=== PATIENT | female | born 1980 | race Caucasian/White ===

== ENCOUNTER 2019-07-03 10:39 | Inpatient (IN) | payer OTHER ==
[2019-07-02 11:32] LABS: MICROSCOPIC AUTO
[~2019-07-03] VITALS: Ht 175.3 cm; Wt 93.5 kg
[~2019-07-03 10:39] MED LIST: CEPH-376 PO; SUMA4CAR IM; TAMS-11 PO; ZOLM2.5S NAS
[2019-07-03] MEDS ORDERED: LACTATED RINGERS 1,000 ML IV SCH (11:02)
[2019-07-03 11:06] VITALS: BP 122/77
[2019-07-03 11:24] LABS: HCG UR SG 1.011 (1.003-1.030)
[2019-07-03] MEDS ORDERED: CHLORHEXIDINE 15 ML UDC MM ONE (11:30)
[2019-07-03] MEDS ORDERED: MIDAZOLAM 1 MG/ML, 2ML ONE (11:45)
[2019-07-03] MEDS ORDERED: FENTANYL PF 250 MCG/5ML ONE (11:45)
[2019-07-03] MEDS ORDERED: DEXAMETHASONE 4 MG/ML, 1ML ONE ×2 (11:48→11:54)
[2019-07-03] MEDS ORDERED: PROPOFOL 10 MG/ML, 20ML ONE (11:48)
[2019-07-03] MEDS ORDERED: CEFAZOLIN 1,000 MG ONE ×3 (11:48→11:54)
[2019-07-03] MEDS ORDERED: SUCCINYLCHOLINE 20 MG/ML, 10ML ONE (11:54)
[2019-07-03] MEDS ORDERED: FENTANYL PF 100 MCG/2ML ONE ×4 (12:55→16:11)
[2019-07-03] MEDS ORDERED: OMNIPAQUE 350 MG/ML, 50 ML BOTTLE ONE (13:01)
[2019-07-03] MEDS ORDERED: ONDANSETRON 2MG/ML, 2ML ONE (13:27)
[2019-07-03] MEDS ORDERED: EPHEDRINE 50 MG/ML, 1ML IVPush PRN (13:30)
[2019-07-03] MEDS ORDERED: PROMETHAZINE 25 MG/ML, 1ML IVPush PRN (13:30)
[2019-07-03] MEDS ORDERED: PROMETHAZINE 12.5 MG SUPP PR PRN (13:30)
[2019-07-03] MEDS ORDERED: LABETALOL 5MG/ML, 20ML IV PRN (13:30)
[2019-07-03] MEDS ORDERED: HYDROmorphone 1 MG/ML, 1ML INJ IVPush PRN (13:30)
[2019-07-03] MEDS ORDERED: ALBUTEROL SULFATE 2.5 MG/3 ML NPPB PRN (13:30)
[2019-07-03] MEDS ORDERED: ACETAMINOPHEN 325 MG TABLET PO PRN (13:30)
[2019-07-03] MEDS ORDERED: MIDAZOLAM 1 MG/ML, 2ML IV PRN (13:30)
[2019-07-03] MEDS ORDERED: ONDANSETRON 2MG/ML, 2ML IVPush PRN (13:30)
[2019-07-03] MEDS ORDERED: LORazepam 2 MG/ML, 1ML IVPush PRN (13:30)
[2019-07-03] MEDS ORDERED: hydrALAzine 20 MG/ML, 1ML IV PRN (13:30)
[2019-07-03] MEDS ORDERED: DIPHENHYDRAMINE 50 MG/ML, 1ML IVPush PRN (13:30)
[2019-07-03] MEDS ORDERED: MEPERIDINE/PF 25MG/0.5ML IVPush PRN (13:30)
[2019-07-03] MEDS ORDERED: MEPERIDINE/PF 50 MG/ML ONE (13:33)
[2019-07-03] MEDS: FENTANYL PF 100 MCG/2ML IV PRN ×2 (13:45→13:51)
[2019-07-03] MEDS ORDERED: DIPHENHYDRAMINE 50 MG/ML, 1ML ONE (14:02)
[2019-07-03] MEDS ORDERED: SUMATRIPTAN 6MG/0.5ML SQ PRN (16:00)
[2019-07-03] MEDS: HYDROmorphone 1 MG/ML, 1ML INJ IV PRN ×5 (16:03→22:11)
[2019-07-03] MEDS ORDERED: FLUMAZENIL 0.1 MG/1 ML, 5ML ONE (16:11)
[2019-07-03] MEDS ORDERED: NALOXONE 1 MG/ML, 2ML ONE (16:11)
[2019-07-03] MEDS ORDERED: MIDAZOLAM 1 MG/ML, 5ML ONE (16:11)
[2019-07-03] MEDS ORDERED: LIDOCAINE 1%, 20ML ONE ×2 (16:13→16:48)
[2019-07-03] MEDS ORDERED: VISIPAQUE 270 MG/ML, 50ML BOTTLE ONE (17:10)
[2019-07-03 17:40] VITALS: BP 113/67
[2019-07-03 19:41] VITALS: BP 124/81
[2019-07-03] MEDS: LACTATED RINGERS 1,000 ML IV SCH (20:20)
[2019-07-03] MEDS: ONDANSETRON 2MG/ML, 2ML IV PRN (22:06)
[2019-07-03 23:51] VITALS: BP 117/76
[2019-07-04] MEDS: HYDROmorphone 1 MG/ML, 1ML INJ IV PRN ×4 (01:43→12:02)
[2019-07-04 03:24] VITALS: BP 99/56
[2019-07-04] MEDS: LACTATED RINGERS 1,000 ML IV SCH ×2 (05:59→08:22)
[2019-07-04 10:21] VITALS: BP 105/62
[2019-07-04] MEDS ORDERED: DOCU-131 PO (10:47)
[2019-07-04] MEDS: ONDANSETRON 2MG/ML, 2ML IV PRN (13:09)
[2019-07-04 15:30] VITALS: BP 109/76
== END 2019-07-04 16:00 | disposition home or self-care (01) | DRG 690 ==
LOC: OUT 10:39 → EDSTATUS 13:00 → 4NE 14:58 → OUT 15:06 → 4NE 15:06
PROVIDERS: ADMIT Urology; ATTEND Urology
PROC: 0T9330Z Drainage of Right Kidney Pelvis with Drainage Device, Percutaneous Approach (ICD-10-PCS; 2019-07-03)
PROC: BT141ZZ Fluoroscopy of Kidneys, Ureters and Bladder using Low Osmolar Contrast (ICD-10-PCS; principal; 2019-07-03 13:00)
DX: N13.5 Crossing vessel and stricture of ureter without hydronephrosis (principal); N30.20 Other chronic cystitis without hematuria; Z87.442 Personal history of urinary calculi
CPT/HCPCS: 50432; 74420; J3490; 76770; 81001; 81025; 87086; 99156; 99157; C1894; G0378; J0690; J1100; J1170; J2175; J2250; J2405; J2704; J3010; Q9966; Q9967; C1729; C1769; J0330; J1200; J2310; J7120; U0001

== ENCOUNTER 2019-09-11 09:59 | Day surgery (SDC) | payer OTHER ==
[~2019-09-11] VITALS: Ht 175.3 cm; Wt 89.7 kg
[~2019-09-11 09:59] MED LIST changes: +DOCU-131 PO
[2019-09-11 10:36] VITALS: BP 105/73
[2019-09-11] MEDS ORDERED: SODIUM CHLORIDE 0.9% 1,000 ML IV ONE (10:42)
[2019-09-11 10:59] LABS: HCG UR SG 1.022 (1.003-1.030)
[2019-09-11] MEDS ORDERED: LIDOCAINE 1%, 10ML ONE (11:21)
[2019-09-11] MEDS ORDERED: MIDAZOLAM 1 MG/ML, 5ML ONE (12:11)
[2019-09-11] MEDS ORDERED: FLUMAZENIL 0.1 MG/1 ML, 5ML ONE (12:11)
[2019-09-11] MEDS ORDERED: FENTANYL PF 100 MCG/2ML ONE (12:11)
[2019-09-11] MEDS ORDERED: NALOXONE 1 MG/ML, 2ML ONE (12:11)
[2019-09-11] MEDS ORDERED: VISIPAQUE 270 MG/ML, 50ML BOTTLE ONE (13:06)
== END 2019-09-11 14:10 | disposition home or self-care (01) ==
LOC: OUT 09:59
PROVIDERS: ATTEND Student in an Organized Health Care Education/Training Program
DX: N20.0 Calculus of kidney (principal); Z88.1 Allergy status to other antibiotic agents; Z88.0 Allergy status to penicillin; Z88.8 Allergy status to other drugs, medicaments and biological substances; Z91.048 Other nonmedicinal substance allergy status; Z91.040 Latex allergy status; Z79.899 Other long term (current) drug therapy; Z72.89 Other problems related to lifestyle; Z85.828 Personal history of other malignant neoplasm of skin
CPT/HCPCS: 50435; 81025; 99156; C1729; C1769; J2250; J3010; J7030; Q9966; J2310

== ENCOUNTER → 2019-10-26 | Outpatient (CLI) | payer OTHER | END | disposition home or self-care (01) | LOC: STAR 14:20 | PROVIDERS: ATTEND Anesthesiology | DX: Z01.812 Encounter for preprocedural laboratory examination (principal); Z20.828 Contact with and (suspected) exposure to other viral communicable diseases | CPT/HCPCS: 36415; 87635 ==

== ENCOUNTER 2019-11-01 06:58 | Day surgery (SDC) | payer OTHER ==
[~2019-11-01] VITALS: Ht 175.3 cm; Wt 89.1 kg
[2019-11-01] MEDS ORDERED: SODIUM CHLORIDE 0.9% 1,000 ML IV SCH (07:39)
[2019-11-01 07:42] VITALS: BP 122/82
[2019-11-01] MEDS ORDERED: FENTANYL PF 100 MCG/2ML ONE (09:29)
[2019-11-01] MEDS ORDERED: NALOXONE 1 MG/ML, 2ML ONE (09:29)
[2019-11-01] MEDS ORDERED: FLUMAZENIL 0.1 MG/1 ML, 5ML ONE (09:29)
[2019-11-01] MEDS ORDERED: MIDAZOLAM 1 MG/ML, 5ML ONE (09:29)
[2019-11-01] MEDS ORDERED: VISIPAQUE 270 MG/ML, 50ML BOTTLE ONE (09:50)
[2019-11-01] MEDS ORDERED: PHENAZOPYRIDINE 200 MG TABLET PO STA (11:14)
[2019-11-01] MEDS ORDERED: HYDROcodone/APAP 10/325 MG TABLET PO ONE (12:30)
[2019-11-01] MEDS ORDERED: HYDROcodone/APAP 5/325 TABLET PO ONE (14:00)
== END 2019-11-01 16:05 | disposition home or self-care (01) ==
LOC: OUT 06:58
PROVIDERS: ATTEND Student in an Organized Health Care Education/Training Program
DX: Z46.6 Encounter for fitting and adjustment of urinary device (principal); N20.2 Calculus of kidney with calculus of ureter; Z88.0 Allergy status to penicillin; Z88.5 Allergy status to narcotic agent; Z88.8 Allergy status to other drugs, medicaments and biological substances; Z91.040 Latex allergy status
CPT/HCPCS: 50434; 99156; 99157; C1751; C1769; C2625; J2250; J3010; Q9966; 50433; 50435; J2310

== ENCOUNTER 2019-11-02 09:39 | Observation (INO) | payer OTHER ==
[~2019-11-02] VITALS: Ht 175.3 cm; Wt 96.0 kg
[2019-11-02] MEDS ORDERED: LACTATED RINGERS 1,000 ML IV SCH (10:04)
[2019-11-02] MEDS ORDERED: CHLORHEXIDINE 15 ML UDC MM STA (10:05)
[2019-11-02 10:06] VITALS: BP 133/75
[2019-11-02] MEDS ORDERED: PLEASE ENTER HEIGHT AND WEIGHT MC SCH (10:30)
[2019-11-02 10:48] LABS: HCG UR SG 1.023 (1.003-1.030)
[2019-11-02 10:49] LABS: MICROSCOPIC INDICATED
[2019-11-02 11:02] LABS: INTERNATIONAL NORMALIZED RATIO 1.04 (0.93-1.1); PROTHROMBIN TIME 10.7 Seconds (9.6-11.5)
[2019-11-02 11:07] LABS: ANION GAP 8 mmol/L (5-15); CALCIUM 9.2 mg/dL (8.5-10.1); CHLORIDE 112 mmol/L (98-107)
[2019-11-02] MEDS ORDERED: PROPOFOL 50 ML ONE (11:25)
[2019-11-02] MEDS ORDERED: FENTANYL PF 250 MCG/5ML ONE (11:26)
[2019-11-02] MEDS ORDERED: MIDAZOLAM 1 MG/ML, 2ML ONE (11:26)
[2019-11-02] MEDS ORDERED: ONDANSETRON 2MG/ML, 2ML ONE (11:38)
[2019-11-02] MEDS ORDERED: ROCURONIUM 10MG/ML,5ML ONE (11:38)
[2019-11-02] MEDS ORDERED: SUCCINYLCHOLINE 20 MG/ML, 10ML ONE (11:38)
[2019-11-02] MEDS ORDERED: DEXAMETHASONE 4 MG/ML, 1ML ONE (11:38)
[2019-11-02] MEDS ORDERED: PROPOFOL 10 MG/ML, 20ML ONE (11:38)
[2019-11-02] MEDS ORDERED: GENTAMICIN 80 MG/2 ML ONE (11:51)
[2019-11-02] MEDS ORDERED: CLINDAMYCIN 150 MG/ML, 6ML ONE (11:52)
[2019-11-02] MEDS ORDERED: DIAZEPAM 5 MG/ML, 2ML IVPush PRN (12:30)
[2019-11-02] MEDS ORDERED: HYDROmorphone 1 MG/ML, 1ML INJ IVPush PRN (12:30)
[2019-11-02] MEDS ORDERED: MEPERIDINE/PF 25MG/0.5ML IVPush PRN (12:30)
[2019-11-02] MEDS ORDERED: EPHEDRINE 50 MG/ML, 1ML IVPush PRN (12:30)
[2019-11-02] MEDS ORDERED: PROMETHAZINE 25 MG/ML, 1ML IVPush PRN (12:30)
[2019-11-02] MEDS ORDERED: DIPHENHYDRAMINE 50 MG/ML, 1ML IVPush PRN (12:30)
[2019-11-02] MEDS ORDERED: FENTANYL PF 100 MCG/2ML IV PRN (12:30)
[2019-11-02] MEDS ORDERED: LABETALOL 5MG/ML, 20ML IV PRN (12:30)
[2019-11-02] MEDS ORDERED: EPHEDRINE 50 MG/ML, 1ML IM PRN (12:30)
[2019-11-02] MEDS ORDERED: ACETAMINOPHEN 325 MG TABLET PO PRN (12:30)
[2019-11-02] MEDS ORDERED: ONDANSETRON 2MG/ML, 2ML IVPush PRN (12:30)
[2019-11-02] MEDS ORDERED: ONDANSETRON 2MG/ML, 2ML IV PRN (13:30)
[2019-11-02] MEDS ORDERED: HEPARIN 5,000 UNITS/ML, 1ML SQ SCH (13:30)
[2019-11-02] MEDS ORDERED: HYDROmorphone 1 MG/ML, 1ML INJ IV PRN (13:30)
[2019-11-02] MEDS ORDERED: ACETAMINOPHEN 325 MG TABLET PO SCH (13:30)
[2019-11-02] MEDS ORDERED: OXYcodone 5 MG/5 ML ORAL.SOL UDC PO PRN (13:30)
[2019-11-02] MEDS ORDERED: MEPERIDINE/PF 25MG/ML,1ML ONE (13:43)
[2019-11-02 14:09] LABS: ALBUMIN 3.2 g/dL (3.4-5.0); ANION GAP 6 mmol/L (5-15); CALCIUM 8.4 mg/dL (8.5-10.1); CHLORIDE 109 mmol/L (98-107); CREATININE 0.75 mg/dL (0.55-1.02)
[2019-11-02] MEDS ORDERED: SUMATRIPTAN 6MG/0.5ML SQ PRN (17:00)
[2019-11-02] MEDS ORDERED: OXYcodone 5 MG/5 ML ORAL.SOL UDC ONE (17:12)
[2019-11-02] MEDS: HYDROcodone/APAP 10/325 MG TABLET PO PRN (17:52)
[2019-11-02] MEDS: SODIUM CHLORIDE 0.9% 1,000 ML IV SCH (17:52)
[2019-11-02] MEDS ORDERED: IBUPROFEN 800 MG TABLET PO PRN (18:00)
[2019-11-02 20:02] VITALS: BP 109/41
[2019-11-02] MEDS ORDERED: DOCUSATE 100 MG CAPSULE PO SCH (21:00)
[2019-11-02] MEDS ORDERED: DOCUSATE 100 MG CAPSULE ONE (21:09)
[2019-11-03 00:43] VITALS: BP 93/51
[2019-11-03] MEDS: SODIUM CHLORIDE 0.9% 1,000 ML IV SCH ×2 (01:30→09:41)
[2019-11-03 04:24] VITALS: BP 103/48
[2019-11-03] MEDS: HYDROcodone/APAP 10/325 MG TABLET PO PRN (05:31)
[2019-11-03 05:48] LABS: BASOPHILS # (AUTO) 0.01 x10^3/uL (0-0.1); BASOPHILS % (AUTO) 0 % (0-1); EOSINOPHILS # (AUTO) 0.01 x10^3/uL (0-0.4); EOSINOPHILS % (AUTO) 0 % (1-7); LYMPHOCYTES # (AUTO) 1.13 x10^3/uL (1-3.4); LYMPHOCYTES % (AUTO) 9 % (22-44); MD NO; MEAN CORPUSCULAR HEMOGLOBIN 24.1 pg (27.0-34.8); MEAN CORPUSCULAR HGB CONC 31.1 g/dL (32.4-35.8); MEAN CORPUSCULAR VOLUME 77.3 fL (80-100); MEAN PLATELET VOLUME 7.6 fL (7.4-10.4); MONOCYTES % (AUTO) 6 % (2-9); NEUTROPHILS % (AUTO) 85 % (42-75); PLATELET COUNT 265 x10^3/uL (130-400); RED BLOOD COUNT 3.85 x10^6/uL (3.82-5.3); RED CELL DISTRIBUTION WIDTH 16.4 % (9.6-15.2)
[2019-11-03 06:03] LABS: CHLORIDE 111 mmol/L (98-107)
[2019-11-03 06:36] LABS: ALANINE AMINOTRANSFERASE 12 U/L (12-78); ALBUMIN 2.9 g/dL (3.4-5.0); ALKALINE PHOSPHATASE 63 U/L (45-117); ANION GAP 8 mmol/L (5-15); BILIRUBIN,TOTAL 0.2 mg/dL (0.2-1.0); CALCIUM 8.5 mg/dL (8.5-10.1); CREATININE 0.63 mg/dL (0.55-1.02); TOTAL PROTEIN 6.4 g/dL (6.4-8.2)
[2019-11-03 08:07] VITALS: BP 101/56
[2019-11-03] MEDS ORDERED: HEPARIN 5,000 UNITS/ML, 1ML SQ SCH (08:30)
[2019-11-03] MEDS ORDERED: POLYETHYLENE GLYCOL 17 GM PACKET PO SCH ×2 (09:00)
[2019-11-03] MEDS ORDERED: DOCUSATE 100 MG CAPSULE PO SCH (09:00)
[2019-11-03] MEDS ORDERED: HYDR-3240 PO (13:24)
== END 2019-11-03 14:09 | disposition home or self-care (01) ==
LOC: OUT 09:39 → 4NE 15:40 → OUT 15:45 → 4NE 15:45 → OUT 17:06
PROVIDERS: ADMIT Student in an Organized Health Care Education/Training Program; ATTEND Student in an Organized Health Care Education/Training Program
DX: N13.2 Hydronephrosis with renal and ureteral calculous obstruction (principal); Z20.828 Contact with and (suspected) exposure to other viral communicable diseases; Z87.442 Personal history of urinary calculi
CPT/HCPCS: 36415; 50080; 74425; 80048; 80053; 81001; 81025; 82040; 82360; 85014; 85018; 85025; 85610; 86850; 86900; 87086; 87635; 88300; 96360; 96361; 96372; C1727; C1729; C1758; C1769; G0378; J0330; J1100; J1580; J1644; J2175; J2250; J2405; J2704; J3010; J7030; J7120; S0077